=== PATIENT | female | born 2005 | race Caucasian/White ===

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

== ENCOUNTER → 2025-01-26 | Outpatient (CLI) | payer SELFPAY | LOC: LAB 11:50 → LAB SHORT 11:50 | DX: O99.891 Other specified diseases and conditions complicating pregnancy (principal); R10.9 Unspecified abdominal pain | CPT/HCPCS: 84702 ==